=== PATIENT | male | born 1945 | race Caucasian/White ===

== ENCOUNTER 2018-06-12 09:15 | Inpatient (IN) | payer MEDICARE, MEDICAID ==
[2018-06-12 09:44] LABS: Hemoglobin 11.5 g/dL (14.0-18.0); Mean Corpuscular HGB CONC 33.7 g/dL (32.0-36.0); Mean Corpuscular Hemoglobin 29.2 pg (27.0-31.0); Mean Corpuscular Volume 86.6 fL (78.0-98.0); Mean Platelet Volume 6.4 fL (7.4-10.4); Platelet Count 278 thou/uL (130-400); RBC Distribution Width 12.7 % (11.5-14.5); Red Blood Cell (RBC) Count 3.94 mill/uL (4.70-6.10); White Blood Cell (WBC) Count 5.2 thou/uL (4.8-10.8)
[2018-06-12 10:02] LABS: Band 1 % (5-11); Hypochromia SLIGHT = 6-15 cells (100X) (0-5/hpf); Lymphocytes 16 % (21-51); MDiff Complete? YES; Monocytes 12 % (0-10); Neutrophil 71 % (42-75); PLT Morphology Comment Appears Adequate; Polychromasia SLIGHT = 2-3 cells (100X) (0-2/hpf)
[2018-06-12 10:11] LABS: ALT (SGPT) 17 U/L (8-55); AST (SGOT) 22 U/L (5-34); Albumin 3.6 g/dL (3.4-4.8); Alkaline Phosphatase 88 U/L (40-150); Anion Gap 13 mmol/L (10-20); BUN (Urea Nitrogen) 18 mg/dL (8.4-25.7); Bilirubin, Total 0.3 mg/dL (0.2-1.2); CK (CPK) 61 U/L (30-200); Calc. Creatinine Clearance 0 mL/min (70-130); Carbon Dioxide 30 mmol/L (23-31); Chloride 98 mmol/L (98-107); Estimated GFR-MDRD 57; Globulin 2.5 g/dL (2.4-3.5); Glucose 100 mg/dL (83-110); Potassium 3.8 mmol/L (3.5-5.1); Protein, Total 6.1 g/dL (5.8-8.1); Sodium 137 mmol/L (136-145)
[2018-06-12 10:14] LABS: CKMB 1.3 ng/mL (0-6.6); Troponin I 0.019 ng/mL (< 0.028)
[2018-06-12 10:35] LABS: INR-International Normal Ratio 1.3; PTT 37.9 SEC (22.9-36.1); Prothrombin Time 16.4 SEC (12.0-14.7)
[2018-06-12] MEDS ORDERED: ADMIXTURE FEE IV SCH (11:00)
[2018-06-12] MEDS ORDERED: HUMAN PROTHROMBIN COMPLX IV SCH (11:00)
--- NOTE | 2018-06-12 12:01 | CT ---
CT HEAD WITHOUT CONTRAST: Multiple axial tomograms were obtained through the head without IV enhancement. INDICATION: Fall with head injury and syncopal episode. FINDINGS: Ventricles have normal size and position. There is a small focal density in the right temporal lobe measuring approximately 1 cm consistent with a small parenchyma hematoma. There is also evidence of a small subdural along the tentorium on the right. No midline shift or mass effect. No evidence of acute infarct. No evidence of skull fracture. There is a large scalp hematoma over the right frontal bone. IMPRESSION: Evidence of small hemorrhagic contusion in the right temporal lobe with evidence of small right tento rial subdural. Followup recommended. Findings related to Dr. Bryant. CODE CR POS: [facility]
--- NOTE | 2018-06-12 12:04 | CT ---
CT CERVICAL SPINE WITH CORONAL AND SAGITTAL REFORMATIONS: HISTORY: Fall, head injury, neck pain. FINDINGS: There are degenerative changes in the cervical spine. No acute fracture, subluxation, or facet malal ignment is identified. POS: [facility]
[2018-06-12 12:32] VITALS: BMI 31.5
[2018-06-12] MEDS ORDERED: Dextrose 50% Abboject 50 ML SYRINGE SLOW IVP PRN (12:35)
[2018-06-12] MEDS ORDERED: Ondansetron ODT 4 MG TAB PO PRN (12:35)
[2018-06-12] MEDS ORDERED: Dextrose 5% in Water 1,000 ML IV PRN (12:35)
[2018-06-12] MEDS ORDERED: traMADol HCl 50 MG TAB PO PRN ×2 (12:35)
[2018-06-12] MEDS ORDERED: Ondansetron HCl/PF 4 MG/2 ML Vial IVP PRN (12:35)
[2018-06-12] MEDS: Acetaminophen 1,000 MG in Premix Bag 1 BAG IVPB SCH ×3 (13:05→23:19)
[2018-06-12] MEDS: Sodium Chloride 0.9% 1,000 ML IV SCH ×2 (13:05→23:19)
[2018-06-12] MEDS ORDERED: ISOVUE-370 76%-LOCM 1 ML ONE (13:42)
[2018-06-12] MEDS: HYDROcodone/Acetaminophen 10/325 mg Tablet PO PRN ×2 (14:05→21:49)
[2018-06-12] MEDS: hydrALAZINE 20 MG/ML VIAL SLOW IVP PRN ×2 (14:07→20:09)
--- NOTE | 2018-06-12 15:28 | CT ---
CT CHEST AND ABDOMEN AND PELVIS WITH IV CONTRAST: Multiple axial tomograms are obtained through the chest, abdomen, and pelvis with IV enhancement. Tr [facility] protocol is followed. INDICATION: Fall with complaints of back and flank pain. Chest pain. Patient on anticoagulants. FINDINGS: CT CHEST: The lung rivers show chronic lung parenchymal changes. No evidence of pneumothorax or effusion. No evidence of inflammatory infiltrate. There are atherosclerotic changes involving the thoracic aorta. There is mild aneurysmal dilatation involving the descending thoracic aorta with diameter at the diaphragm measured at approximately 4 cm . There is mild peripheral thrombus and peripheral calcification. No evidence of dissection. Nonsp ecific mediastinal lymph nodes. The bony thorax appears intact. IMPRESSION: 1. Chronic lung parenchymal changes. 2. Atherosclerotic changes of the thoracic aorta with fusiform aneurysmal dilatation of the descendi ng thoracic aorta without evidence of dissection. CT ABDOMEN AND PELVIS: Liver, spleen, pancreas, adrenal glands, and kidneys unremarkable. No evidence of organ injury. [place] el loops unremarkable. Abdominal aorta shows atherosclerotic changes and mild ectasia without aneurysmal dilatation. The urinary bladder is unremarkable. The prostate is mildly enlarged. No free fluid, mass, or adeno rhoda identified. The osseous structures appear intact. IMPRESSION: No acute injury identified. CT THORACIC AND LUMBAR SPINE: Sagittal and coronal imaging obtained of the thoracic and lumbar spine. The thoracic and lumbar vertebrae maintain height and alignment. Degenerative osteophytes are seen. No evidence of acute compression or fracture. POS: [facility]
[2018-06-12] MEDS: Lorazepam 2 MG/ML VIAL SLOW IVP PRN (16:11)
--- NOTE | 2018-06-12 16:36 | PRG ---
DATE OF SERVICE: 06/12/2018 Please see [facility] Mr. Wang had a syncope and a fall, has some subarachnoid blood. N eurosurgerchristina is seen. He is awake and alert, but anxious. Thus, he is having a panic attack. He sta cristóbal that he used to have a lot of anxiety previously. Also has chronic back pain and takes 3-6 Odell a day. Plan is ICU observation given he is on Eliquis today. Repeat scan later. Plan is per Neuro surgery.
--- NOTE | 2018-06-12 18:14 | CON ---
DATE OF CONSULTATION: 06/12/2018 Jovany Tom PA-C., dictating for Lj Hinds MD This is a 50-minute initial patient consult, of which greater than 50% of the exam was spent counseli ng and coordinating patient's care. Remainder of the exam was spent in review of patient's medical r ecords and appropriate imaging studies. CHIEF COMPLAINT: Status post fall on the face with right temporal contusion and small right subdural hematoma. HISTORY OF PRESENT ILLNESS: Mr. Wang is a 72-year-old male, who presents to [facility] for the above complaints. Apparently, he became somewhat unsteady on his feet and weak in the kne es as he was attempting to sit in a chair and fell directly onto his face, striking his right forehea d. He does have a large scalp hematoma on the right forehead area consistent with his fall. He is o n Eliquis and aspirin, although he does not know if he is on a baby dose or a low-strength versus hig h-strength aspirin. He has a history of DVT as well as some syncopal hypotension episodes. He genny lly complains of neck pain and low back pain, but states he has some increased low back pain at this time. He denies weakness into the extremities. He denies nausea, vomiting, or dizziness at this jenna e. Review of patient's head CT shows a small right temporal intraparenchymal contusion as well as a small right-sided subdural hematoma. Review of patient's cervical spine CT is negative for fracture. PHYSICAL EXAMINATION: The patient is awake, alert, and appropriate. GCS currently is 15. He is janes ented to person, date, and year, although the exact details of the place and date are not known to [facility]. Follows commands equally in all 4 extremities. He has good strength in the bilateral upper and b ilateral lower extremities. Pupils are equal, round, and reactive bilaterally. He has no horizontal nystagmus. He has no difficulty with index [id number] testing. He is able to correctly define a pen and the definition of an island. He does appear to have a little bit of tenderness into the lo w back region. He does have some tenderness to palpation in the cervical spine, but states this is b aseline for him and unchanged at this time. PRESENT DIAGNOSES: 1. Status post fall with small right traumatic subdural hematoma and right temporal contusion. 2. Eliquis and aspirin for history of deep venous thrombosis. PLAN: Our Trauma colleagues will graciously admit the patient. I would like him to have q.2-hour ne uro checks, but he is neurologically, stable at this time. We would like his head of bed elevated at 30 degrees and we will plan for repeat head CT in the morning. The patient's current INR is 1.3 and he was given Kcentra in the emergency room. At this time, it is unclear if this INR is a pre or pos t Kcentra dosage. We will hold on all his blood thinners. I would also like to image his low back. We will get a CT scan. Should his neurologic status decline, then we will get a repeat head CT soon er. I have updated the patient and his son at bedside that, at this time, he does not require any ty pe of neurosurgical intervention and the hope is that these contusions will improve on their own. I have also updated them that we will hold his blood thinners. Please call with any questions or farah es in patient's neurologic status. I would like his systolic blood pressure to remain less than 150.
[2018-06-12] MEDS: busPIRone HCl 10 MG TAB PO SCH (20:08)
[2018-06-12] MEDS: Tamsulosin HCl 0.4 MG CAP PO SCH (20:08)
[2018-06-12] MEDS: Famotidine 20 MG TAB PO SCH (20:08)
[2018-06-12] MEDS: Dofetilide 0.125 MG CAP PO SCH (20:08)
[2018-06-12] MEDS ORDERED: Lorazepam 2 MG/ML VIAL SLOW IVP SCH (21:00)
[2018-06-12] MEDS ORDERED: Dofetilide 0.25 MG CAP PO SCH (21:00)
[2018-06-12] MEDS: NICOTINE GUM 4 MG PO PRN (23:22)
[2018-06-13] MEDS: hydrALAZINE 20 MG/ML VIAL SLOW IVP PRN ×2 (01:19→20:04)
[2018-06-13] MEDS: Lorazepam 2 MG/ML VIAL SLOW IVP PRN ×2 (04:39→21:24)
[2018-06-13] MEDS: Acetaminophen 1,000 MG in Premix Bag 1 BAG IVPB SCH ×4 (05:51→23:27)
[2018-06-13 06:02] LABS: #Eosinphils 0.5 thou/uL (0.0-0.7); #Lymphocytes 0.7 thou/uL (1.20-3.40); #Monocytes 0.4 thou/uL (0.11-0.59); %Basophils 0.3 % (0.0-1.0); %Eosinophils 8.1 % (0.0-10.0); %Lymphocytes 11.9 % (21.0-51.0); %Monocytes 7.7 % (0.0-10.0); %Neutrophils 72.1 % (42.0-75.0); Hemoglobin 12.6 g/dL (14.0-18.0); Mean Corpuscular HGB CONC 33.9 g/dL (32.0-36.0); Mean Corpuscular Hemoglobin 29.5 pg (27.0-31.0); Mean Corpuscular Volume 87.1 fL (78.0-98.0); Mean Platelet Volume 6.2 fL (7.4-10.4); Platelet Count 260 thou/uL (130-400); RBC Distribution Width 12.8 % (11.5-14.5); Red Blood Cell (RBC) Count 4.25 mill/uL (4.70-6.10); White Blood Cell (WBC) Count 5.6 thou/uL (4.8-10.8)
[2018-06-13 06:07] LABS: INR-International Normal Ratio 1.2; Prothrombin Time 15.2 SEC (12.0-14.7)
[2018-06-13 06:08] LABS: PTT 34.5 SEC (22.9-36.1)
[2018-06-13 06:13] LABS: Anion Gap 10 mmol/L (10-20); BUN (Urea Nitrogen) 14 mg/dL (8.4-25.7); Calc. Creatinine Clearance 104 mL/min (70-130); Calcium 8.9 mg/dL (7.8-10.44); Carbon Dioxide 27 mmol/L (23-31); Chloride 102 mmol/L (98-107); Estimated GFR-MDRD 80; Glucose 117 mg/dL (83-110); Magnesium 1.6 mg/dL (1.6-2.6); Phosphorus 2.1 mg/dL (2.3-4.7); Potassium 3.5 mmol/L (3.5-5.1); Sodium 135 mmol/L (136-145)
[2018-06-13] MEDS: Furosemide 80 MG TAB PO SCH (08:47)
[2018-06-13] MEDS: DULoxetine 30 MG CAP PO SCH (08:48)
[2018-06-13] MEDS: Potassium Chloride 20 MEQ TAB PO SCH (08:48)
[2018-06-13] MEDS: Dofetilide 0.125 MG CAP PO SCH ×2 (08:48→20:14)
[2018-06-13] MEDS: Famotidine 20 MG TAB PO SCH ×2 (08:48→20:00)
[2018-06-13] MEDS: Atorvastatin Calcium 20 MG TAB PO SCH (08:49)
[2018-06-13] MEDS: Pantoprazole 40 MG GRANULES PACKET PO SCH (08:49)
[2018-06-13] MEDS: busPIRone HCl 10 MG TAB PO SCH ×2 (08:53→20:00)
[2018-06-13] MEDS: NICOTINE GUM 4 MG PO PRN ×2 (08:54→20:08)
--- NOTE | 2018-06-13 09:12 | CT ---
"PRELIMINARY REPORT/[facility]/EMERGENTY AFTER-HOURS PROCEDURE Addendum created by Zaki Malik MD on 06/13/2018 5:25 AM Central Time ([place] & [place]) Findings discu ssed with Nicole Ortiz RN at time of interpretation. Initial Report created on 06/13/2018 5:07 AM Central Time ([place] & [place]) CT Head Without Intravenous Contrast EXAM DATE/TIME: 06/13/2018 4:48 AM CLINICAL HISTORY: 72 years old, male; Condition or disease; Other: Hemorrhage; Patient HX: F/u hemorrhagic contusion TECHNIQUE: Axial computed tomography images of the head/brain without intravenous contrast. COMPARISON: CT Brain WO Con 06/12/2018 10:03 AM FINDINGS: Brain: 2.5 cm posterior right temporal hemorrhagic contusion has increased in size compared to the pr ior study. No new areas of hemorrhage. No midline shift. Volume loss and chronic small vessel ischemi c change. Ventricles: Normal. No ventriculomegaly. Bones/joints: Normal. No acute fracture. Sinuses: Normal as visualized. No acute sinusitis. Mastoid air cells: Normal as visualized. No mastoid effusion. Soft tissues: Right frontal scalp hematoma. IMPRESSION: 2.5 cm posterior right temporal hemorrhagic contusion has increased in size compared to the prior donal dy. Thank you for allowing us to participate in the care of your patient. TI BEATTY | Preliminary Radiology Report TWISTER TENDER (QA) DISCREPANCY? If there is a discrepancy between the preliminary and final interpretation, please notify [facility] via ht [email or web address]. If you do not have access to our QA portal, call our QA team at [phone] CONFIDENTIALITY STATEMENT This report is intended only for the use of the referring physician, and only in accordance with law, If you received this in error, call [phone] Page 2 of 2 Dictated and Authenticated by: Zaki Malik MD 06/13/2018 5:07 AM Central Time ([place]) FINAL REPORT CT HEAD: DATE: 06/13/18. TIME: 4:49 a.m. INDICATION: Followup hemorrhagic contusion right temporal lobe. COMPARISON: 06/12/18 CT head. FINDINGS: There is now a 2.5 cm contusion in the right temporal parenchyma. This has increased in size when co mpared to yesterday's exam. The small subdural along the tentorium on the right is less pronounced t jr. I am in agreement with the preliminary report. POS: [facility]"
[2018-06-13] MEDS: Midodrine HCl 5 MG TAB PO SCH (09:57)
--- NOTE | 2018-06-13 11:15 | HP ---
This is 30 minutes initial hospital note in which 30 minutes were spent in review the imaging, record , evaluation, examination of patient, and formulation of a plan. Greater than 50% of the time was sp ent in counseling. CHIEF COMPLAINT: Intracranial bleed with right temporal contusion status post fall. HISTORY OF PRESENT ILLNESS: I reviewed the notes of my colleague Jovany Tom PA-C, and agree wit h its content. Mr. Wang is a 72-year-old man who became dizzy and weak while attempting to sit in t he chair and fell directly onto his face, striking his right forehead. He is on Eliquis and aspirin with reported history of DVT. He is on narcotics as well for chronic spinal pain by review of the re cord. A head CT yesterday demonstrated right temporal parenchymal contusion with some blossoming thi s morning and a small right-sided subdural hematoma. CT of the cervical, thoracic, and lumbar spine is negative for acute abnormality. On exam this morning while he has had some increase in his tempor al contusion, he is neurologically intact with a GCS of 15. He has no complaints. IMPRESSION AND PLAN: I would be fine with transfer to the floor. We should abstain from anticoagula nt or antiplatelet medications until we see him in followup. We will arrange for followup head CT wi thout contrast in 1 month. I have let the patient know that we will arrange for followup. DIAGNOSIS: Right temporal contusion status post fall, on blood thinner.
--- NOTE | 2018-06-13 15:16 | PRG ---
DATE OF SERVICE: 06/13/2018 SUBJECTIVE: Mr. Wang is currently on the critical care unit, status post a fall in which he sustain ed a subarachnoid hemorrhage and he was on Eliquis at that time. He was admitted overnight and had a repeat head CT this morning, which showed just a slight increase in the site of his bleed, but it wa s otherwise stable. His pain is currently controlled. He tolerated diet this morning and he is curr ently working with physical and occupational therapy. PHYSICAL EXAMINATION: VITAL SIGNS: Temperature is 97.6, heart rate 90, blood pressure 124/86, respirations 18, oxygen satu ration 95% on room air. GENERAL: The patient is awake, alert, and oriented. He is currently sitting on the side of the bed. His [place] coma scale is 15. HEENT: Shows contusions to his forehead, otherwise unremarkable. LUNGS: Clear to auscultation with good inspiratory and expiratory effort. HEART: Regular rate and rhythm. ABDOMEN: Soft, flat, nontender with active bowel sounds. EXTREMITIES: Neurovascularly intact. LABORATORY FINDINGS: White blood cell count 5.6, hemoglobin 12.6, hematocrit 37.0, platelets 260. S odium 135, potassium 3.5, chloride 102, CO2 of 27, BUN 14, creatinine 0.93, glucose 117. Radiographs to review this morning, CT of the brain without contrast shows a contusion in the right temporal par enchyma, which has increased in size compared to yesterday's and a small subdural along the tentorium of the right is less pronounced today. ASSESSMENT AND PLAN: 1. Status post fall. 2. Right temporal, parenchymal contusion and small subdural along the right tentorium. Plan will be to move the patient to the surgical floor. This was discussed with Dr. Hinds and he wa s in agreement with this plan. We will continue the remainder of his medications, switch everything that, has not already been changed, to p.o. and advance his diet. Likely, the patient will be able t o be discharged home tomorrow pending any neuro status changes. The patient is anxious to return maurilio e to the [place] area.
[2018-06-13] MEDS: Sodium Chloride 0.9% 1,000 ML IV SCH ×3 (17:15→21:24)
[2018-06-13] MEDS: Senokot S 8.6-50 MG TAB PO SCH (20:00)
[2018-06-13] MEDS: HYDROcodone/Acetaminophen 10/325 mg Tablet PO PRN (20:01)
[2018-06-13] MEDS: Tamsulosin HCl 0.4 MG CAP PO SCH (20:01)
[2018-06-14] MEDS: hydrALAZINE 20 MG/ML VIAL SLOW IVP PRN (00:34)
[2018-06-14] MEDS: Sodium Chloride 0.9% 1,000 ML IV SCH (05:22)
[2018-06-14] MEDS: Acetaminophen 1,000 MG in Premix Bag 1 BAG IVPB SCH (05:44)
[2018-06-14] MEDS: Pantoprazole 40 MG GRANULES PACKET PO SCH (08:06)
[2018-06-14] MEDS: Furosemide 80 MG TAB PO SCH (08:07)
[2018-06-14] MEDS: Potassium Chloride 20 MEQ TAB PO SCH (08:07)
[2018-06-14] MEDS: DULoxetine 30 MG CAP PO SCH (08:07)
[2018-06-14] MEDS: busPIRone HCl 10 MG TAB PO SCH (08:07)
[2018-06-14] MEDS: Famotidine 20 MG TAB PO SCH (08:07)
[2018-06-14] MEDS: Atorvastatin Calcium 20 MG TAB PO SCH (08:07)
[2018-06-14] MEDS: Senokot S 8.6-50 MG TAB PO SCH (08:07)
--- NOTE | 2018-06-14 08:08 | HP ---
DATE OF ADMISSION: 06/12/2018 REQUESTING PHYSICIAN: Dr. Bryant. ATTENDING SURGEON: Dr. Pena. CONSULTATIONS: Neurosurgery, Dr. Hinds. HISTORY OF PRESENT ILLNESS: The patient is a 72-year-old man, who was reportedly at a gas station, he was walking to go to the bathroom when he "became wobbly," reached for a chair to sit bridget n, missed and landed and struck his face and forehead. The patient had a brief period of altered men doroteo status, at which time EMS was called and he was brought to the emergency department, underwent ev aluation, and was noted to have an intracerebral hemorrhage. Of note, the patient is on Eliquis, and at which time we were asked to evaluate the patient for admission and obtain neurosurgical consultat ion. ALLERGIES: None. CURRENT MEDICATIONS: Buspirone, vitamin D3, dofetilide, duloxetine, metoprolol, Lasix, Eliquis, Effi dent, aspirin, Klor-Con, pantoprazole, atorvastatin, midodrine. PAST MEDICAL HISTORY: History of congestive heart failure, myocardial infarction, hyperlipidemia, hi gh cholesterol, hypertension, COPD, emphysema, anxiety and depression. PAST SURGICAL HISTORY: Cardiac stent x2. SOCIAL HISTORY: The patient denies drug or alcohol use, but smokes about a third of a pack of cigare ttes per day. He lives at home with his family. FAMILY MEDICAL HISTORY: Coronary artery disease. REVIEW OF SYSTEMS: Ten-point review of systems is negative, unless otherwise stated. PHYSICAL EXAMINATION: VITAL SIGNS: Blood pressure 174/81, heart rate 78, respirations 18, oxygen saturation is 93% on room air, temperature is 98.5. GENERAL: The patient is resting comfortably in the Critical Care Unit bed. He is awake, alert, and oriented. His [place] coma scale is 15. HEENT: Patient has a small abrasion to his right forehead. There is some crusted blood noticed in h is nares. Otherwise, his head is atraumatic and normocephalic. Eyes: Extraocular motion intact. P ERRLA bilaterally. Ears are atraumatic without discharge. NOSE: Again, there is dry blood in his nares, otherwise no deformity. Oropharynx is clear. NECK: Nontender. Trachea is midline. No JVD. CHEST: Scattered scant wheezes bilaterally. HEART: Regular rate and rhythm. ABDOMEN: Soft, flat, nontender with active bowel sounds. Pelvis is stable. EXTREMITIES: Neurovascularly intact x4. Capillary refill is less than 3 seconds. BACK: Nontender. LABORATORY RESULTS: White blood cell count 5.2, hemoglobin 11.5, hematocrit 34.1, platelets 278. So dium 137, potassium 3.8, chloride 98, CO2 of 30, BUN 18, creatinine 1.24. LFTs are unremarkable. CK -MB 1.3, troponin 0.19. CK 61, PTT 38, PT 16, INR 1.3. RADIOGRAPHIC FINDINGS: CT of the brain without contrast shows evidence of a small hemorrhagic contus ion in the right temporal lobe with evidence of small right tentorial subdural. CT of the C-spine wi thout contrast shows no acute fracture subluxation or facet malalignment. ASSESSMENT AND PLAN: 1. Status post ground-level fall. 2. Small hemorrhagic contusion in the right temporal lobe with evidence of small right tentorial sub dural. 3. Acute pain secondary to trauma. 4. History of coronary artery disease. 5. History of Eliquis use. Plan will be to admit the patient to the Critical Care Unit for close observation and frequent neuro checks. The patient will have a repeat head CT in the morning. We will do pain control, pulmonary t oilet, gastritis, and mechanical VTE prophylaxis. The patient was evaluated by Neurosurgery, who fel t that the patient was having some flank pain and asked us to evaluate him with a CT of his chest, ab domen, and pelvis, which we have ordered. The evaluation, examination, laboratory, and radiographic findings will be discussed with Dr. Pena after this dictation.
[2018-06-14 08:11] VITALS: TEMP 97.8
[2018-06-14] MEDS ORDERED: Polyethylene Glycol 3350 17 GM Packet PO SCH (09:00)
[2018-06-14] MEDS: Midodrine HCl 5 MG TAB PO SCH (10:45)
[2018-06-14] MEDS: Dofetilide 0.125 MG CAP PO SCH (10:45)
[2018-06-14] MEDS: HYDROcodone/Acetaminophen 10/325 mg Tablet PO PRN (10:48)
[2018-06-14 11:30] VITALS: BP 160/81
--- NOTE | 2018-06-14 12:56 | DIS ---
DATE OF ADMISSION: 06/12/2018 DATE OF DISCHARGE: 06/14/2018 ADMISSION DIAGNOSES: 1. Status post ground level fall. 2. Small hemorrhagic contusion in the right temporal lobe with evidence of a small right tentorial s ubdural. 3. Acute pain secondary to trauma. 4. History of coronary artery disease. 5. History of Eliquis use. CONSULTATIONS: Neurosurgery, Dr. Hinds. PROCEDURES: None. SUMMARY: The patient is a 72-year-old man who was at a gas station walking to the bathroom when he became wobbly. He reached for a chair to sit down when he missed it and fell and hit his fo rehead. The patient was brought to the Emergency Department, evaluated, examined and found to have the above injuries. Due to his Eliquis use he was admitted to the Critical Care Unit for close observation. Fede le had a repeat CT in the morning which Neurosurgery reviewed and noted that his contusions were stabl e. He would be moved to the surgical floor for one more night of observation. This morning, the day of discharge, he was awake, alert, oriented and appropriate. He was more than ready to leave the [facility]. His family will come pick him up. The patient is from the [place] area and states that he w ill follow up down there. We will still give him all the information to follow up with Dr. Hinds. Here he was also instructed to hold his Eliquis and aspirin use until he is seen by a neurosurgeon an d he should definitely follow up with his primary care provider within the next week. He was given s trict return precautions and discussion about his antiplatelet anticoagulation use.
--- NOTE | 2018-06-16 11:44 | PQF ---
TI BEATTY BRYAN DAVID MD [id number] CLINICAL DOCUMENTATION CLARIFICATION FORM: POST DISCHARGE DATE: 06/16/2018 ATTN: Dr. Pena Please exercise your independent, professional judgment in responding to the clarification form. Clinical indicators are provided on the bottom of this form for your review Please clarify type of congestive heart failure (chronic): Please check appropriate box(s): HEART FAILURE: A. CHRONIC [ ] Systolic / HFrEF [ ] Diastolic / HFpEF [ ] Combined Systolic / Diastolic [ ] Other diagnosis (please specify) [ ] Unable to determine In addition, please specify: Present on Admission (POA): [ ] Yes [ ] No [ ] Unable to determine For continuity of documentation, please document condition throughout progress notes and discharge summary. Thank You. CLINICAL INDICATORS - SIGNS / SYMPTOMS / LABS Per H&P: History of congestive heart failure. RISKS: (per H&P) History of CAD with cardiac stent x 2. Hypertension TREATMENTS: (per medications) Continuation of patient's home medication of Lasix 80 mg po daily. (This form is maintained as a part of the permanent medical record) 2014 [employer]. All Rights Reserved [email or web address] [phone] [email or web address]
== END 2018-06-14 11:43 | disposition home or self-care (01) | DRG 87 ==
LOC: ERS 09:15 → CCU 10:20 → SURG A 06-13 11:55
PROVIDERS: ADMIT Surgery; ATTEND Surgery
DX: S06.5X0A Traumatic subdural hemorrhage without loss of consciousness, initial encounter (principal); G89.11 Acute pain due to trauma; I11.0 Hypertensive heart disease with heart failure; I50.9 Heart failure, unspecified; I25.10 Atherosclerotic heart disease of native coronary artery without angina pectoris; E78.5 Hyperlipidemia, unspecified; J43.9 Emphysema, unspecified; F41.9 Anxiety disorder, unspecified; F32.9 Major depressive disorder, single episode, unspecified; F17.210 Nicotine dependence, cigarettes, uncomplicated; G89.29 Other chronic pain; M54.9 Dorsalgia, unspecified; F41.0 Panic disorder [episodic paroxysmal anxiety]; I25.2 Old myocardial infarction; Z86.718 Personal history of other venous thrombosis and embolism; Z79.01 Long term (current) use of anticoagulants; Z79.82 Long term (current) use of aspirin; Z79.899 Other long term (current) drug therapy; Z95.5 Presence of coronary angioplasty implant and graft; W18.39XA Other fall on same level, initial encounter; Y92.524 Gas station as the place of occurrence of the external cause
CPT/HCPCS: 36415; 70450; 71260; 72125; 74177; 80048; 80053; 82553; 83735; 84100; 84484; 85025; 85610; 85730; 86850; 86900; 86901; 93005; 96365; 96375; C9132; G8978-GP-CJ; G8979-GP-CH; G8987-GO-CI; G8988-GO-CI; G8989-GO-CI; J0131; J0360; J2060; J2270; J8499